=== PATIENT | female | born 1960 | race Two or more races ===

== ENCOUNTER 2016-07-26 13:36 | Emergency (ER) | payer MEDICAID ==
[~2016-07-26] VITALS: Ht 154.9 cm; Wt 87.4 kg
[2016-07-26] MEDS ORDERED: SODIUM CHLORIDE 0.9% 1,000ML IVBOLUS ONE (14:00)
[2016-07-26] MEDS ORDERED: MECLIZINE CHEWABLE 25 MG TAB PO ONE (14:00)
[2016-07-26 14:11] LABS: HEMOGLOBIN 14.7 g/dL (11.7-16.4)
[2016-07-26 14:23] LABS: BLOOD UREA NITROGEN 10 mg/dL (7-18)
[2016-07-26 14:27] LABS: ASPARTATE AMINO TRANSFERASE 15 U/L (15-37)
[2016-07-26 16:00] VITALS: BP 144/93
== END 2016-07-26 16:40 | disposition home or self-care (01) ==
LOC: ED 14:38
DX: H81.10 Benign paroxysmal vertigo, unspecified ear (principal)
CPT/HCPCS: 36415; 70450; 80053; 85025; 93005; 96360; 99285; J7030